=== PATIENT | male | born 1970 | race Caucasian/White ===

== ENCOUNTER 2020-06-03 10:54 | Emergency (ER) | payer OTHER ==
[~2020-06-03] VITALS: Ht 170.2 cm; Wt 65.3 kg
[2020-06-03 11:24] VITALS: Ht 170.2 cm; Wt 65.3 kg
[2020-06-03 13:30] VITALS: BP 124/74
== END 2020-06-03 13:30 | disposition home or self-care (01) ==
LOC: ED 10:54
DX: S61.011A Laceration without foreign body of right thumb without damage to nail, initial encounter (principal); W23.0XXA Caught, crushed, jammed, or pinched between moving objects, initial encounter; Y93.89 Activity, other specified; Y92.89 Other specified places as the place of occurrence of the external cause; Y99.0 Civilian activity done for income or pay
CPT/HCPCS: A4570; Q0092

== ENCOUNTER 2020-06-04 09:48 | Emergency (ER) | payer OTHER ==
[~2020-06-04] VITALS: Ht 170.2 cm; Wt 63.5 kg
[2020-06-04 09:59] VITALS: BP 173/82; Ht 170.2 cm; Wt 63.5 kg
== END 2020-06-04 11:23 | disposition home or self-care (01) ==
LOC: ED 09:48
DX: S61.001D Unspecified open wound of right thumb without damage to nail, subsequent encounter (principal); X58.XXXD Exposure to other specified factors, subsequent encounter